=== PATIENT | female | born 1940 | race Caucasian/White ===

== ENCOUNTER 2020-08-26 13:14 | Inpatient (IN) | payer OTHER ==
[~2020-08-26] VITALS: Ht 154.9 cm; Wt 43.5 kg
[2020-08-26 14:21] LABS: Albumin 3.2 g/dL (3.4-5.0); Anion Gap 5 (5-15); Blood Urea Nitrogen 18 mg/dL (7-18); Calcium 9.3 mg/dL (8.5-10.1); Carbon Dioxide 29 mmol/L (21-32); Chloride 106 mmol/L (98-107); Glucose 124 mg/dL (74-106); Magnesium 2.2 mg/dL (1.6-2.6); Potassium 3.9 mmol/L (3.5-5.1); Sodium 140 mmol/L (136-145)
[2020-08-26 14:33] LABS: Basophils # (auto) 0.1 10 ^3/uL (0-0.2); Basophils % (auto) 0.9 % (0.0-2.0); Eosinophils # (auto) 0.5 10 ^3/uL (0-0.8); Eosinophils % (auto) 5.4 % (0.0-7.0); Hematocrit 36.3 % (36.0-46.0); Hemoglobin 12.1 g/dL (12.2-16.2); Lymphocytes % (auto) 22.5 % (10.0-50.0); Mean Corpuscular Hemoglobin 28.9 pg (28.0-32.0); Mean Corpuscular Hgb Conc. 33.2 g/dL (32.0-36.0); Mean Corpuscular Volume 86.9 fL (80.0-100.0); Monocytes # (auto) 1.3 10 ^3/uL (0-1.3); Monocytes % (auto) 14.7 % (0.0-12.0); Neutrophils # (auto) 4.9 10 ^3/uL (1.6-8.6); Neutrophils % (auto) 56.5 % (37.0-80.0); Nucleated Red Blood Cells % 0.1 %; Red Blood Cells 4.18 10^6/uL (4.0-5.20); Red Cell Distribution Width 15.7 % (11.8-14.3); White Blood Cell 8.7 10^3/uL (4.4-10.8)
[2020-08-26 14:34] LABS: Alanine Aminotransferase 21 U/L (13-56); Alkaline Phosphatase 94 U/L (45-117); Aspartate Aminotransferase 24 U/L (15-37); BUN/Creatinine Ratio 19.8; Bilirubin, Total 0.3 mg/dL (0.2-1.0); GFR African American 77 mL/min; GFR Non-African American 63 mL/min; Total Protein 7.7 g/dL (6.4-8.2)
[2020-08-26] MEDS ORDERED: IPRATROPIUM BROM 0.5 MG/2.5ML INH SOL NEB ONE (18:45)
[2020-08-26] MEDS ORDERED: methylPREDNISolone SOD SUCC 125 MG/2 ML VL IV ONE (18:45)
[2020-08-26] MEDS ORDERED: cefTRIAXone 1GM/50ML D5W 50 ML IV ONE (18:45)
[2020-08-26] MEDS ORDERED: ALBUTEROL SULF 2.5 MG/0.5ML(0.5%) NEB SOLN NEB PRN (21:00)
[2020-08-26] MEDS ORDERED: hydrALAZINE HCL 20 MG/ML VL IV PRN (21:00)
[2020-08-26] MEDS ORDERED: IPRATROPIUM BROM 0.5 MG/2.5ML INH SOL NEB PRN (21:00)
[2020-08-26] MEDS ORDERED: MORPHINE SULFATE INJECTION 2 MG/ML SYRG IV PRN (21:00)
[2020-08-26] MEDS ORDERED: HYDROcodone-ACET 5/325MG TAB PO PRN (21:00)
[2020-08-26] MEDS ORDERED: ONDANSETRON HCL 4 MG/2 ML VIAL IV PRN (21:00)
[2020-08-26] MEDS ORDERED: ACETAMINOPHEN 500 MG TAB PO PRN (21:00)
[2020-08-26 21:24] VITALS: BP 153/74
[2020-08-26] MEDS: BUDESONIDE (INHALATION) 0.5 MG/2 ML NEB NEB SCH (21:55)
[2020-08-26 22:00] VITALS: BP 172/70
[2020-08-26] MEDS ORDERED: RIVAROXABAN 10 MG TAB PO SCH (22:00)
[2020-08-26] MEDS ORDERED: ALBUTEROL SULF HFA 90MCG INH 200DOSE IN SCH (22:00)
[2020-08-26 22:10] LABS: Urine Bacteria FEW /hpf (None Seen); Urine Blood Negative /uL (Negative); Urine WBC 6 /hpf (0 - 5)
[2020-08-26 23:48] VITALS: BP 164/72
[2020-08-27] VITALS (8 sets, daily range): BP systolic 124–164; BP diastolic 59–72
[2020-08-27] MEDS ORDERED: PRAV20TA3 PO ×2 (01:57)
[2020-08-27] MEDS ORDERED: ASCO500T11 PO (01:57)
[2020-08-27] MEDS ORDERED: ZINC1TAB4 PO (01:57)
[2020-08-27] MEDS ORDERED: ALBUAER3 IN (01:57)
[2020-08-27] MEDS ORDERED: RIVA10TA PO (01:57)
[2020-08-27] MEDS ORDERED: MAGN1CAP PO (01:57)
[2020-08-27] MEDS ORDERED: CHOL100055 PO (01:57)
[2020-08-27] MEDS ORDERED: CALC667C PO (01:57)
[2020-08-27] MEDS ORDERED: LORA0.5T20 PO (01:57)
[2020-08-27 06:16] LABS: Basophils # (auto) 0 10 ^3/uL (0-0.2); Basophils % (auto) 0.8 % (0.0-2.0); Eosinophils # (auto) 0 10 ^3/uL (0-0.8); Eosinophils % (auto) 0.1 % (0.0-7.0); Hematocrit 34.8 % (36.0-46.0); Hemoglobin 11.7 g/dL (12.2-16.2); Lymphocytes # (auto) 0.7 10 ^3/uL (0.4-5.4); Lymphocytes % (auto) 12.9 % (10.0-50.0); Mean Corpuscular Hemoglobin 29.2 pg (28.0-32.0); Mean Corpuscular Hgb Conc. 33.6 g/dL (32.0-36.0); Mean Corpuscular Volume 87.1 fL (80.0-100.0); Monocytes # (auto) 0.1 10 ^3/uL (0-1.3); Monocytes % (auto) 1.8 % (0.0-12.0); Neutrophils # (auto) 4.6 10 ^3/uL (1.6-8.6); Neutrophils % (auto) 84.4 % (37.0-80.0); Red Cell Distribution Width 15.9 % (11.8-14.3); White Blood Cell 5.5 10^3/uL (4.4-10.8)
[2020-08-27] MEDS: ALBUTEROL SULF 2.5 MG/0.5ML(0.5%) NEB SOLN NEB SCH ×3 (06:25→20:14)
[2020-08-27] MEDS: BUDESONIDE (INHALATION) 0.5 MG/2 ML NEB NEB SCH ×2 (06:25→20:15)
[2020-08-27] MEDS: IPRATROPIUM BROM 0.5 MG/2.5ML INH SOL NEB SCH ×3 (06:25→20:14)
[2020-08-27 06:35] LABS: Calcium 9.3 mg/dL (8.5-10.1)
[2020-08-27] MEDS: amLODIPine BESYLATE 5 MG TAB PO SCH (09:47)
[2020-08-27] MEDS: FAMOTIDINE 20 MG TAB PO SCH (09:51)
[2020-08-27] MEDS: RIVAROXABAN 2.5 MG PO SCH ×2 (11:03→21:07)
[2020-08-27] MEDS: LORazepam 0.5 MG TAB PO PRN (21:21)
[2020-08-28] MEDS ORDERED: IOHEXOL 350 MG/ML 100ML IJ ONE (00:04)
[2020-08-28] MEDS: methylPREDNISolone SOD SUCC 40 MG/ML VL IV SCH ×3 (00:38→13:07)
[2020-08-28 05:17] VITALS: BP 162/80
[2020-08-28 05:55] LABS: Basophils # (auto) 0.1 10 ^3/uL (0-0.2); Basophils % (auto) 1.1 % (0.0-2.0); Eosinophils # (auto) 0 10 ^3/uL (0-0.8); Eosinophils % (auto) 0.4 % (0.0-7.0); Hematocrit 34.6 % (36.0-46.0); Hemoglobin 11.5 g/dL (12.2-16.2); Lymphocytes # (auto) 0.9 10 ^3/uL (0.4-5.4); Lymphocytes % (auto) 9.6 % (10.0-50.0); Mean Corpuscular Hgb Conc. 33.4 g/dL (32.0-36.0); Monocytes # (auto) 0.2 10 ^3/uL (0-1.3); Monocytes % (auto) 2.4 % (0.0-12.0); Neutrophils # (auto) 8.5 10 ^3/uL (1.6-8.6); Neutrophils % (auto) 86.5 % (37.0-80.0); Red Blood Cells 3.98 10^6/uL (4.0-5.20); Red Cell Distribution Width 16.1 % (11.8-14.3); White Blood Cell 9.9 10^3/uL (4.4-10.8)
[2020-08-28 06:13] VITALS: BP 147/69
[2020-08-28 06:20] LABS: Potassium 4.5 mmol/L (3.5-5.1)
[2020-08-28 06:26] LABS: BUN/Creatinine Ratio 31.6; Calcium 8.9 mg/dL (8.5-10.1)
[2020-08-28] MEDS: ALBUTEROL SULF 2.5 MG/0.5ML(0.5%) NEB SOLN NEB SCH ×3 (06:36→14:50)
[2020-08-28] MEDS: BUDESONIDE (INHALATION) 0.5 MG/2 ML NEB NEB SCH (06:36)
[2020-08-28] MEDS: IPRATROPIUM BROM 0.5 MG/2.5ML INH SOL NEB SCH ×3 (06:36→14:51)
[2020-08-28 08:25] VITALS: BP 161/69
[2020-08-28] MEDS ORDERED: cefTRIAXone 1GM/50ML D5W 50 ML IV SCH (09:00)
[2020-08-28] MEDS: FAMOTIDINE 20 MG TAB PO SCH (09:17)
[2020-08-28] MEDS: LORazepam 0.5 MG TAB PO PRN (09:18)
[2020-08-28] MEDS: RIVAROXABAN 2.5 MG PO SCH (09:18)
[2020-08-28] MEDS: amLODIPine BESYLATE 5 MG TAB PO SCH (09:19)
[2020-08-28] MEDS ORDERED: FAMO20TA10 PO (11:39)
[2020-08-28] MEDS ORDERED: PRED20TA2 PO (11:39)
[2020-08-28] MEDS ORDERED: DOXY-338 PO (11:39)
[2020-08-28 12:53] VITALS: BP 156/71
[2020-08-28 16:25] VITALS: BP 148/70
[2020-08-28 16:52] VITALS: BP 148/70
== END 2020-08-28 18:00 | disposition home health service (06) | DRG 189 ==
LOC: ER 13:14 → OVERFLOW 21:00 → WEST WING 23:28
PROVIDERS: ADMIT Nurse Practitioner Acute Care; ATTEND Hospitalist
DX: J96.20 Acute and chronic respiratory failure, unspecified whether with hypoxia or hypercapnia (principal); J18.9 Pneumonia, unspecified organism; J44.1 Chronic obstructive pulmonary disease with (acute) exacerbation; R64 Cachexia; Z68.1 Body mass index [BMI] 19.9 or less, adult; J44.0 Chronic obstructive pulmonary disease with (acute) lower respiratory infection; I10 Essential (primary) hypertension; Z20.822 Contact with and (suspected) exposure to COVID-19; F41.9 Anxiety disorder, unspecified; Z86.16 Personal history of COVID-19; Z86.73 Personal history of transient ischemic attack (TIA), and cerebral infarction without residual deficits; Z86.74 Personal history of sudden cardiac arrest
CPT/HCPCS: 36415; 36600; 71045; 71275; 80048; 80053; 81001; 82805; 83735; 83880; 84484; 85025; 87426; 92610; 93005; 94640; 96365; 96375; 97163; G0378; J0696

== ENCOUNTER 2021-01-18 11:45 | Inpatient (IN) | payer OTHER ==
[~2021-01-18] VITALS: Ht 157.5 cm; Wt 50.0 kg
[~2021-01-18 11:45] MED LIST: ALBUAER3 IN; CALC667C PO; CHOL100055 PO; DOXY-338 PO; FAMO20TA10 PO; LORA0.5T20 PO; MAGN1CAP PO; PRAV20TA3 PO; PRED20TA2 PO; RIVA10TA PO
[2021-01-18] MEDS ORDERED: ALBUTEROL SULF 2.5 MG/0.5ML(0.5%) NEB SOLN HHN ONE (12:00)
[2021-01-18] MEDS ORDERED: IPRATROPIUM BROM 0.5 MG/2.5ML INH SOL HHN ONE (12:00)
[2021-01-18] MEDS ORDERED: methylPREDNISolone SOD SUCC 125 MG/2 ML VL IV ONE (12:00)
[2021-01-18 12:17] LABS: Basophils # (auto) 0 10 ^3/uL (0-0.2); Basophils % (auto) 0.3 % (0.0-2.0); Eosinophils # (auto) 0 10 ^3/uL (0-0.8); Eosinophils % (auto) 0.3 % (0.0-7.0); Hematocrit 34.7 % (36.0-46.0); Hemoglobin 11.2 g/dL (12.2-16.2); Lymphocytes # (auto) 1.3 10 ^3/uL (0.4-5.4); Lymphocytes % (auto) 6.9 % (10.0-50.0); Mean Corpuscular Hemoglobin 29.5 pg (28.0-32.0); Mean Corpuscular Hgb Conc. 32.4 g/dL (32.0-36.0); Monocytes # (auto) 1.4 10 ^3/uL (0-1.3); Monocytes % (auto) 7.8 % (0.0-12.0); Neutrophils # (auto) 15.4 10 ^3/uL (1.6-8.6); Neutrophils % (auto) 84.7 % (37.0-80.0); Red Blood Cells 3.81 10^6/uL (4.0-5.20); Red Cell Distribution Width 14.7 % (11.8-14.3); White Blood Cell 18.2 10^3/uL (4.4-10.8)
[2021-01-18 12:25] LABS: Albumin 2.8 g/dL (3.4-5.0); Anion Gap 5 (5-15); Blood Urea Nitrogen 23 mg/dL (7-18); Calcium 9.7 mg/dL (8.5-10.1); Carbon Dioxide 27 mmol/L (21-32); Chloride 101 mmol/L (98-107); Glucose 128 mg/dL (74-106); Magnesium 2.4 mg/dL (1.6-2.6); Sodium 133 mmol/L (136-145)
[2021-01-18 12:33] LABS: Alanine Aminotransferase 22 U/L (13-56); Alkaline Phosphatase 94 U/L (45-117); Aspartate Aminotransferase 18 U/L (15-37); BUN/Creatinine Ratio 19.3; Bilirubin, Total 0.7 mg/dL (0.2-1.0); GFR African American 56 mL/min; GFR Non-African American 46 mL/min; Total Protein 7.4 g/dL (6.4-8.2)
[2021-01-18] MEDS ORDERED: AZITHROMYCIN 500MG/ 250ML 250 ML IV ONE (13:15)
[2021-01-18 14:00] VITALS: BP 133/50
[2021-01-18] MEDS ORDERED: ONDANSETRON HCL 4 MG/2 ML VIAL IV PRN (14:00)
[2021-01-18] MEDS ORDERED: MORPHINE SULFATE INJECTION 2 MG/ML SYRG IV PRN ×2 (14:00)
[2021-01-18] MEDS ORDERED: DOCUSATE CALCIUM 240 MG CAP PO PRN (14:00)
[2021-01-18] MEDS ORDERED: SODIUM CHLORIDE 0.9% 500 ML IV ONE (14:00)
[2021-01-18] MEDS ORDERED: ACETAMINOPHEN 500 MG TAB PO PRN (14:00)
[2021-01-18] MEDS ORDERED: NITROGLYCERIN 0.4 MG SL TAB SL PRN (14:00)
[2021-01-18] MEDS ORDERED: LORazepam 0.5 MG TAB PO PRN (14:00)
[2021-01-18] MEDS ORDERED: IPRATROPIUM BROM 0.5 MG/2.5ML INH SOL NEB PRN (14:00)
[2021-01-18] MEDS ORDERED: VANCOMYCIN PER PHARMACY 0 MG IV SCH (14:00)
[2021-01-18] MEDS: SODIUM CHLORIDE 0.9% 1,000 ML IV SCH (14:39)
[2021-01-18] MEDS ORDERED: VANCOMYCIN 750mg/250ml 250 ML IV SCH (16:00)
[2021-01-18] MEDS ORDERED: DILT60TA PO (18:47)
[2021-01-18] MEDS: BUDESONIDE (INHALATION) 0.5 MG/2 ML NEB NEB SCH (21:53)
[2021-01-18] MEDS: ALBUTEROL SULF 2.5 MG/0.5ML(0.5%) NEB SOLN NEB PRN (21:53)
[2021-01-18 22:00] VITALS: BP 135/65
[2021-01-19 05:00] VITALS: BP 136/74
[2021-01-19 05:11] LABS: Basophils # (auto) 0 10 ^3/uL (0-0.2); Basophils % (auto) 0.1 % (0.0-2.0); Eosinophils # (auto) 0 10 ^3/uL (0-0.8); Hematocrit 31.9 % (36.0-46.0); Hemoglobin 10.7 g/dL (12.2-16.2); Lymphocytes # (auto) 0.6 10 ^3/uL (0.4-5.4); Lymphocytes % (auto) 5.4 % (10.0-50.0); Mean Corpuscular Hemoglobin 30.1 pg (28.0-32.0); Mean Corpuscular Hgb Conc. 33.3 g/dL (32.0-36.0); Mean Corpuscular Volume 90.2 fL (80.0-100.0); Monocytes # (auto) 0.5 10 ^3/uL (0-1.3); Monocytes % (auto) 4.4 % (0.0-12.0); Neutrophils # (auto) 9.6 10 ^3/uL (1.6-8.6); Neutrophils % (auto) 90.1 % (37.0-80.0); Red Blood Cells 3.54 10^6/uL (4.0-5.20); Red Cell Distribution Width 14.2 % (11.8-14.3); White Blood Cell 10.6 10^3/uL (4.4-10.8)
[2021-01-19 05:29] LABS: INR 1.04 (0.9-1.15)
[2021-01-19 05:41] LABS: Albumin 2.3 g/dL (3.4-5.0); BUN/Creatinine Ratio 25.6; Calcium 8.9 mg/dL (8.5-10.1); Potassium 3.8 mmol/L (3.5-5.1)
[2021-01-19 05:44] LABS: Bilirubin, Total 0.4 mg/dL (0.2-1.0); Total Protein 6.7 g/dL (6.4-8.2)
[2021-01-19] MEDS: BUDESONIDE (INHALATION) 0.5 MG/2 ML NEB NEB SCH ×2 (07:34→19:37)
[2021-01-19] MEDS: ALBUTEROL SULF 2.5 MG/0.5ML(0.5%) NEB SOLN NEB PRN (07:34)
[2021-01-19 09:00] VITALS: BP 130/57
[2021-01-19] MEDS: SODIUM CHLORIDE 0.9% 1,000 ML IV SCH (09:53)
[2021-01-19] MEDS: dilTIAZem 120MG ER CAP PO SCH (09:54)
[2021-01-19] MEDS: PANTOPRAZOLE 40 MG TAB PO SCH (09:54)
[2021-01-19] MEDS ORDERED: ENOXAPARIN SOD 30 MG/0.3 ML SYRINGE SC SCH (10:00)
[2021-01-19 12:39] LABS: Urine Bacteria NONE SEEN /hpf (None Seen); Urine Blood Negative /uL (Negative); Urine Specific Gravity 1.021 (1.001-1.035); Urine WBC 1 /hpf (0 - 5)
[2021-01-19 13:00] VITALS: BP 124/57
[2021-01-19] MEDS ORDERED: cefTRIAXone 1GM/50ML D5W 50 ML IV ONE (13:30)
[2021-01-19] MEDS: methylPREDNISolone SOD SUCC 40 MG/ML VL IV SCH (17:55)
[2021-01-19] MEDS: IPRATROPIUM BROM 0.5 MG/2.5ML INH SOL NEB SCH ×2 (19:30→19:38)
[2021-01-19] MEDS: ALBUTEROL SULF 2.5 MG/0.5ML(0.5%) NEB SOLN NEB SCH ×2 (19:38→19:39)
[2021-01-19 22:00] VITALS: BP 121/62
[2021-01-20] MEDS: ALBUTEROL SULF 2.5 MG/0.5ML(0.5%) NEB SOLN NEB SCH ×4 (00:43→19:05)
[2021-01-20] MEDS: IPRATROPIUM BROM 0.5 MG/2.5ML INH SOL NEB SCH ×4 (00:43→19:05)
[2021-01-20] MEDS: methylPREDNISolone SOD SUCC 40 MG/ML VL IV SCH ×4 (00:46→17:35)
[2021-01-20] MEDS: SODIUM CHLORIDE 0.9% 1,000 ML IV SCH (01:38)
[2021-01-20 04:57] LABS: Basophils # (auto) 0 10 ^3/uL (0-0.2); Basophils % (auto) 0.1 % (0.0-2.0); Eosinophils # (auto) 0 10 ^3/uL (0-0.8); Hematocrit 30.2 % (36.0-46.0); Lymphocytes # (auto) 0.6 10 ^3/uL (0.4-5.4); Lymphocytes % (auto) 4.8 % (10.0-50.0); Mean Corpuscular Hgb Conc. 33.2 g/dL (32.0-36.0); Mean Corpuscular Volume 90.3 fL (80.0-100.0); Monocytes # (auto) 0.4 10 ^3/uL (0-1.3); Neutrophils % (auto) 92.1 % (37.0-80.0); Red Blood Cells 3.34 10^6/uL (4.0-5.20); Red Cell Distribution Width 14.4 % (11.8-14.3)
[2021-01-20 05:21] VITALS: BP 120/60
[2021-01-20] MEDS: BUDESONIDE (INHALATION) 0.5 MG/2 ML NEB NEB SCH ×2 (06:27→19:05)
[2021-01-20] MEDS: cefTRIAXone 1GM/50ML D5W 50 ML IV SCH (08:42)
[2021-01-20 09:00] VITALS: BP 153/98
[2021-01-20] MEDS: dilTIAZem 120MG ER CAP PO SCH (09:31)
[2021-01-20] MEDS: RIVAROXABAN 10 MG TAB PO SCH ×2 (09:32→22:04)
[2021-01-20] MEDS: PANTOPRAZOLE 40 MG TAB PO SCH (09:32)
[2021-01-20 13:00] VITALS: BP 139/57
[2021-01-20] MEDS ORDERED: IOHEXOL 350 MG/ML 100ML IJ ONE (15:55)
[2021-01-20 17:00] VITALS: BP 152/70
[2021-01-20 20:00] VITALS: BP 150/72
[2021-01-20 22:00] VITALS: BP 157/72
[2021-01-20] MEDS: hydrALAZINE HCL 20 MG/ML VL IV PRN (22:05)
[2021-01-21] VITALS (7 sets, daily range): BP systolic 116–157; BP diastolic 57–94
[2021-01-21] MEDS: methylPREDNISolone SOD SUCC 40 MG/ML VL IV SCH ×3 (00:11→11:53)
[2021-01-21] MEDS: ALBUTEROL SULF 2.5 MG/0.5ML(0.5%) NEB SOLN NEB SCH ×4 (00:14→19:03)
[2021-01-21] MEDS: IPRATROPIUM BROM 0.5 MG/2.5ML INH SOL NEB SCH ×4 (00:14→19:03)
[2021-01-21] MEDS: SODIUM CHLORIDE 0.9% 1,000 ML IV SCH ×2 (03:20→22:00)
[2021-01-21 06:26] LABS: Basophils # (auto) 0 10 ^3/uL (0-0.2); Basophils % (auto) 0.1 % (0.0-2.0); Eosinophils # (auto) 0 10 ^3/uL (0-0.8); Hematocrit 31.4 % (36.0-46.0); Hemoglobin 10.5 g/dL (12.2-16.2); Lymphocytes # (auto) 0.6 10 ^3/uL (0.4-5.4); Lymphocytes % (auto) 4.2 % (10.0-50.0); Mean Corpuscular Hemoglobin 29.9 pg (28.0-32.0); Mean Corpuscular Hgb Conc. 33.3 g/dL (32.0-36.0); Mean Corpuscular Volume 89.8 fL (80.0-100.0); Monocytes # (auto) 0.6 10 ^3/uL (0-1.3); Monocytes % (auto) 4.6 % (0.0-12.0); Neutrophils # (auto) 12.4 10 ^3/uL (1.6-8.6); Neutrophils % (auto) 91.1 % (37.0-80.0); Red Cell Distribution Width 14.4 % (11.8-14.3); White Blood Cell 13.6 10^3/uL (4.4-10.8)
[2021-01-21] MEDS: BUDESONIDE (INHALATION) 0.5 MG/2 ML NEB NEB SCH ×2 (06:34→19:03)
[2021-01-21 06:43] LABS: Calcium 8.8 mg/dL (8.5-10.1); Potassium 4.1 mmol/L (3.5-5.1)
[2021-01-21 06:45] LABS: BUN/Creatinine Ratio 34.1
[2021-01-21] MEDS: cefTRIAXone 1GM/50ML D5W 50 ML IV SCH (08:34)
[2021-01-21] MEDS: dilTIAZem 120MG ER CAP PO SCH (09:32)
[2021-01-21] MEDS: PANTOPRAZOLE 40 MG TAB PO SCH (09:32)
[2021-01-21] MEDS: RIVAROXABAN 10 MG TAB PO SCH (09:32)
[2021-01-21] MEDS ORDERED: AMOX500T86 PO (09:46)
[2021-01-21] MEDS ORDERED: PRED20TA2 PO (09:46)
[2021-01-21] MEDS ORDERED: IPRA0.00 IN (09:46)
[2021-01-21] MEDS ORDERED: MEROPENEM 1GM IVPB 100 ML IV SCH (14:00)
[2021-01-21] MEDS ORDERED: RIVAROXABAN 10 MG TAB PO SCH (14:45)
[2021-01-21 16:34] LABS: INR 1.3 (0.9-1.15); Partial Thromboplastin Time 32.9 sec (23.6-33.0)
[2021-01-21] MEDS: ERTAPENEM SOD INJ 1 GM in SODIUM CHL 0.9% 50 ML IV SCH (16:51)
[2021-01-22] MEDS: ALBUTEROL SULF 2.5 MG/0.5ML(0.5%) NEB SOLN NEB SCH ×4 (00:28→20:53)
[2021-01-22] MEDS: IPRATROPIUM BROM 0.5 MG/2.5ML INH SOL NEB SCH ×4 (00:28→20:53)
[2021-01-22 05:00] VITALS: BP 156/73
[2021-01-22] MEDS: hydrALAZINE HCL 20 MG/ML VL IV PRN (05:32)
[2021-01-22] MEDS: BUDESONIDE (INHALATION) 0.5 MG/2 ML NEB NEB SCH ×2 (07:15→20:53)
[2021-01-22 09:24] VITALS: BP 137/69
[2021-01-22] MEDS: dilTIAZem 120MG ER CAP PO SCH (09:54)
[2021-01-22] MEDS: PANTOPRAZOLE 40 MG TAB PO SCH (09:55)
[2021-01-22] MEDS: ERTAPENEM SOD INJ 1 GM in SODIUM CHL 0.9% 50 ML IV SCH (09:55)
[2021-01-22] MEDS: predniSONE 20 MG TAB PO SCH (09:55)
[2021-01-22 12:42] VITALS: BP 138/65
[2021-01-22 16:46] VITALS: BP 143/59
[2021-01-22] MEDS: SODIUM CHLORIDE 0.9% 1,000 ML IV SCH (18:00)
[2021-01-22 22:20] VITALS: BP 134/50
[2021-01-23 05:00] VITALS: BP 148/68
[2021-01-23] MEDS: IPRATROPIUM BROM 0.5 MG/2.5ML INH SOL NEB SCH ×2 (07:35→12:05)
[2021-01-23] MEDS: ALBUTEROL SULF 2.5 MG/0.5ML(0.5%) NEB SOLN NEB SCH ×2 (07:35→12:05)
[2021-01-23] MEDS: BUDESONIDE (INHALATION) 0.5 MG/2 ML NEB NEB SCH (07:35)
[2021-01-23 09:37] VITALS: BP 154/80
[2021-01-23] MEDS: predniSONE 20 MG TAB PO SCH (09:53)
[2021-01-23] MEDS: PANTOPRAZOLE 40 MG TAB PO SCH (09:53)
[2021-01-23] MEDS: dilTIAZem 120MG ER CAP PO SCH (09:53)
[2021-01-23] MEDS: ERTAPENEM SOD INJ 1 GM in SODIUM CHL 0.9% 50 ML IV SCH (09:54)
[2021-01-23 12:42] VITALS: BP 149/81
[2021-01-23] MEDS: SODIUM CHLORIDE 0.9% 1,000 ML IV SCH (14:00)
[2021-01-23 15:10] VITALS: BP 148/80
== END 2021-01-23 17:30 | disposition home health service (06) | DRG 193 ==
LOC: ER 11:45 → TELE 14:00 → TELE-WESTW 17:14
PROVIDERS: ADMIT Family Medicine; ATTEND Hospitalist
DX: J18.9 Pneumonia, unspecified organism (principal); J96.21 Acute and chronic respiratory failure with hypoxia; E87.1 Hypo-osmolality and hyponatremia; R65.10 Systemic inflammatory response syndrome (SIRS) of non-infectious origin without acute organ dysfunction; E44.1 Mild protein-calorie malnutrition; Z20.822 Contact with and (suspected) exposure to COVID-19; J43.9 Emphysema, unspecified; R73.9 Hyperglycemia, unspecified; E86.0 Dehydration; N18.9 Chronic kidney disease, unspecified; E78.5 Hyperlipidemia, unspecified; I12.9 Hypertensive chronic kidney disease with stage 1 through stage 4 chronic kidney disease, or unspecified chronic kidney disease; B96.20 Unspecified Escherichia coli [E. coli] as the cause of diseases classified elsewhere; K21.9 Gastro-esophageal reflux disease without esophagitis; R54 Age-related physical debility; Z88.6 Allergy status to analgesic agent; Z90.49 Acquired absence of other specified parts of digestive tract; Z79.01 Long term (current) use of anticoagulants; Z79.899 Other long term (current) drug therapy; Z82.49 Family history of ischemic heart disease and other diseases of the circulatory system; Z86.16 Personal history of COVID-19; Z86.73 Personal history of transient ischemic attack (TIA), and cerebral infarction without residual deficits; Z87.891 Personal history of nicotine dependence
CPT/HCPCS: 36415; 71045; 71275; 80048; 80053; 81001; 82565; 82728; 83036; 83605; 83735; 83880; 84439; 84443; 84484; 85025; 85379; 85610; 85730; 86141; 87040; 87070; 87077; 87186; 87205; 87426; 93005; 93306; 94640; 96365; 96367; 96375; 99291; G0378; J0696; J1335; J2185

== ENCOUNTER 2021-08-14 12:41 | Observation (INO) | payer OTHER ==
[~2021-08-14] VITALS: Ht 160 cm; Wt 49.0 kg
[~2021-08-14 12:41] MED LIST changes: +AMOX500T86 PO; +DILT60TA PO; -DOXY-338 PO; +IPRA0.00 IN
[2021-08-14 13:36] LABS: Basophils # (auto) 0.1 10 ^3/uL (0-0.2); Basophils % (auto) 0.5 % (0.0-2.0); Eosinophils # (auto) 0.1 10 ^3/uL (0-0.8); Eosinophils % (auto) 0.4 % (0.0-7.0); Hematocrit 35.7 % (36.0-46.0); Hemoglobin 11.9 g/dL (12.2-16.2); Lymphocytes # (auto) 1.8 10 ^3/uL (0.4-5.4); Lymphocytes % (auto) 11.8 % (10.0-50.0); Mean Corpuscular Hemoglobin 30.5 pg (28.0-32.0); Mean Corpuscular Hgb Conc. 33.3 g/dL (32.0-36.0); Mean Corpuscular Volume 91.6 fL (80.0-100.0); Monocytes # (auto) 1.3 10 ^3/uL (0-1.3); Monocytes % (auto) 8.6 % (0.0-12.0); Neutrophils # (auto) 11.8 10 ^3/uL (1.6-8.6); Neutrophils % (auto) 78.7 % (37.0-80.0); Red Blood Cells 3.89 10^6/uL (4.0-5.20); Red Cell Distribution Width 14.7 % (11.8-14.3)
[2021-08-14 13:54] LABS: Albumin 3.2 g/dL (3.4-5.0); BUN/Creatinine Ratio 17.6; Calcium 8.9 mg/dL (8.5-10.1); Potassium 3.6 mmol/L (3.5-5.1)
[2021-08-14 13:57] LABS: Bilirubin, Total 0.6 mg/dL (0.2-1.0); Total Protein 7.7 g/dL (6.4-8.2)
[2021-08-14] MEDS ORDERED: ALBUTEROL SULF 2.5 MG/0.5ML(0.5%) NEB SOLN NEB STA (14:34)
[2021-08-14] MEDS ORDERED: methylPREDNISolone SOD SUCC 125 MG/2 ML VL IV ONE (14:45)
[2021-08-14] MEDS ORDERED: IPRATROPIUM BROM 0.5 MG/2.5ML INH SOL NEB ONE (14:45)
[2021-08-14] MEDS ORDERED: LORazepam 2MG/ML-1ML VIAL IV ONE (14:45)
[2021-08-14] MEDS ORDERED: cefTRIAXone 1GM/50ML D5W 50 ML IV ONE (15:45)
[2021-08-14] MEDS ORDERED: AZITHROMYCIN 500MG/ 250ML 250 ML IV ONE (15:45)
[2021-08-14] MEDS ORDERED: MORPHINE SULFATE INJ 2 MG/ml SYRG IV PRN (17:15)
[2021-08-14] MEDS ORDERED: NITROGLYCERIN 0.4 MG SL TAB SL PRN (17:15)
[2021-08-14] MEDS ORDERED: ALBUTEROL SULF HFA 90MCG INH 200DOSE IN PRN (17:30)
[2021-08-14] MEDS ORDERED: IOHEXOL 350 MG/ML 100ML IJ ONE (18:01)
[2021-08-14] MEDS: ALBUTEROL SULF 2.5 MG/0.5ML(0.5%) NEB SOLN NEB SCH (19:09)
[2021-08-14] MEDS: IPRATROPIUM BROM 0.5 MG/2.5ML INH SOL NEB SCH (19:09)
[2021-08-14 22:00] VITALS: BP 103/54
[2021-08-14] MEDS ORDERED: RIVAROXABAN 10 MG TAB PO SCH (22:00)
[2021-08-14] MEDS: methylPREDNISolone SOD SUCC 125 MG/2 ML VL IV SCH (22:09)
[2021-08-14] MEDS: CEFEPIME 2 GM in SODIUM CHL 0.9% 50 ML IV SCH (22:09)
[2021-08-14 22:11] VITALS: BP 113/42
[2021-08-15] MEDS: IPRATROPIUM BROM 0.5 MG/2.5ML INH SOL NEB SCH ×3 (00:03→12:08)
[2021-08-15] MEDS: ALBUTEROL SULF 2.5 MG/0.5ML(0.5%) NEB SOLN NEB SCH ×3 (00:03→12:08)
[2021-08-15 01:03] VITALS: BP 113/42
[2021-08-15 05:00] VITALS: BP 104/48
[2021-08-15] MEDS: methylPREDNISolone SOD SUCC 125 MG/2 ML VL IV SCH ×2 (06:19→14:00)
[2021-08-15 09:00] VITALS: BP 134/57
[2021-08-15] MEDS: CEFEPIME 2 GM in SODIUM CHL 0.9% 50 ML IV SCH (09:53)
[2021-08-15] MEDS ORDERED: FAMOTIDINE 20 MG TAB PO SCH (10:00)
[2021-08-15] MEDS ORDERED: AZITHROMYCIN 500MG/ 250ML 250 ML IV SCH (10:00)
[2021-08-15] MEDS ORDERED: CALCIUM ACETATE 667 MG CAP PO SCH (10:00)
[2021-08-15] MEDS ORDERED: PANTOPRAZOLE 40 MG TAB PO SCH (10:00)
[2021-08-15] MEDS ORDERED: CHOLECALCIFEROL (VITD3) 1,000UNIT=25mCg TAB PO SCH (10:00)
[2021-08-15] MEDS ORDERED: methylPREDNISolone SOD SUCC 125 MG/2 ML VL IV SCH (10:00)
[2021-08-15] MEDS ORDERED: dilTIAZem 120MG ER CAP PO SCH (10:00)
[2021-08-15] MEDS ORDERED: LORazepam 0.5 MG TAB PO SCH (10:00)
[2021-08-15] MEDS ORDERED: ENOXAPARIN SOD 40 MG/0.4 ML SYRINGE SC SCH (10:00)
[2021-08-15] MEDS ORDERED: ASPirin 81 mg TAB PO SCH (10:00)
[2021-08-15] MEDS ORDERED: ALBUAER3 IN (10:28)
[2021-08-15] MEDS ORDERED: LEVO750T8 PO (10:28)
[2021-08-15] MEDS ORDERED: PRED20TA2 PO (10:28)
[2021-08-15] MEDS ORDERED: FAMO20TA10 PO (10:28)
[2021-08-15] MEDS ORDERED: IPRA0.00 IN (10:28)
[2021-08-15] MEDS ORDERED: GUAI400T44 PO (10:28)
[2021-08-15 11:05] LABS: Basophils # (auto) 0 10 ^3/uL (0-0.2); Basophils % (auto) 0.1 % (0.0-2.0); Eosinophils # (auto) 0 10 ^3/uL (0-0.8); Hematocrit 32.3 % (36.0-46.0); Hemoglobin 10.9 g/dL (12.2-16.2); Lymphocytes # (auto) 0.8 10 ^3/uL (0.4-5.4); Lymphocytes % (auto) 4.1 % (10.0-50.0); Mean Corpuscular Hemoglobin 30.9 pg (28.0-32.0); Mean Corpuscular Hgb Conc. 33.9 g/dL (32.0-36.0); Mean Corpuscular Volume 91.1 fL (80.0-100.0); Monocytes # (auto) 0.8 10 ^3/uL (0-1.3); Neutrophils # (auto) 19.1 10 ^3/uL (1.6-8.6); Neutrophils % (auto) 91.8 % (37.0-80.0); Red Blood Cells 3.54 10^6/uL (4.0-5.20); Red Cell Distribution Width 14.7 % (11.8-14.3); White Blood Cell 20.8 10^3/uL (4.4-10.8)
[2021-08-15 11:24] LABS: Albumin 2.8 g/dL (3.4-5.0); BUN/Creatinine Ratio 23.1; Calcium 9.4 mg/dL (8.5-10.1); Potassium 3.7 mmol/L (3.5-5.1)
[2021-08-15 11:38] LABS: Bilirubin, Total 0.4 mg/dL (0.2-1.0); Total Protein 7.1 g/dL (6.4-8.2)
[2021-08-15 13:00] VITALS: BP 126/53
[2021-08-15 15:50] VITALS: BP 126/53
[2021-08-15 16:03] VITALS: BP 134/57
[2021-08-15] MEDS ORDERED: PRAVASTATIN SODIUM 20 MG TAB PO SCH (22:00)
== END 2021-08-15 16:35 | disposition home health service (06) ==
LOC: ER 12:41 → TELE 17:13 → TELE-CENTR 21:45
PROVIDERS: ADMIT Hospitalist; ATTEND Hospitalist
DX: J96.21 Acute and chronic respiratory failure with hypoxia (principal); Z20.822 Contact with and (suspected) exposure to COVID-19; J43.9 Emphysema, unspecified; Z87.891 Personal history of nicotine dependence; Z88.0 Allergy status to penicillin; Z79.899 Other long term (current) drug therapy; Z86.73 Personal history of transient ischemic attack (TIA), and cerebral infarction without residual deficits
CPT/HCPCS: 36415; 71045; 71275; 80053; 83880; 84484; 85025; 85379; 87040; 87070; 87077; 87186; 87205; 87426; 93005; 94640; 96365; 96366; 96367; 96368; 96375; 96376; 99285; G0378; J0456; J0692; J0696; J2060; J2930; J7644; Q9967

== ENCOUNTER 2021-09-24 13:52 | Inpatient (IN) | payer OTHER ==
[~2021-09-24] VITALS: Ht 152.4 cm; Wt 53.0 kg
[~2021-09-24 13:52] MED LIST changes: -AMOX500T86 PO; +GUAI400T44 PO; +LEVO750T8 PO; -RIVA10TA PO
[2021-09-24] MEDS ORDERED: IPRATROPIUM BROM 0.5 MG/2.5ML INH SOL HHN ONE (14:00)
[2021-09-24] MEDS ORDERED: methylPREDNISolone SOD SUCC 125 MG/2 ML VL IV ONE (14:00)
[2021-09-24] MEDS ORDERED: ALBUTEROL SULF 2.5 MG/0.5ML(0.5%) NEB SOLN HHN ONE (14:00)
[2021-09-24 14:45] LABS: Basophils # (auto) 0.1 10 ^3/uL (0-0.2); Eosinophils # (auto) 0.2 10 ^3/uL (0-0.8); Monocytes # (auto) 0.7 10 ^3/uL (0-1.3); Nucleated Red Blood Cells % 0.1 %
[2021-09-24 14:47] LABS: Basophils % (auto) 1.1 % (0.0-2.0); Eosinophils % (auto) 2.6 % (0.0-7.0); Hematocrit 35.6 % (36.0-46.0); Hemoglobin 12.1 g/dL (12.2-16.2); Lymphocytes # (auto) 1.9 10 ^3/uL (0.4-5.4); Lymphocytes % (auto) 25.2 % (10.0-50.0); Mean Corpuscular Hemoglobin 30.7 pg (28.0-32.0); Mean Corpuscular Hgb Conc. 33.9 g/dL (32.0-36.0); Mean Corpuscular Volume 90.8 fL (80.0-100.0); Monocytes % (auto) 9.5 % (0.0-12.0); Neutrophils # (auto) 4.7 10 ^3/uL (1.6-8.6); Neutrophils % (auto) 61.6 % (37.0-80.0); Red Blood Cells 3.93 10^6/uL (4.0-5.20); Red Cell Distribution Width 14.1 % (11.8-14.3); White Blood Cell 7.7 10^3/uL (4.4-10.8)
[2021-09-24 15:11] LABS: Albumin 3.4 g/dL (3.4-5.0); Calcium 9.5 mg/dL (8.5-10.1); Magnesium 2.7 mg/dL (1.6-2.6)
[2021-09-24 15:14] LABS: BUN/Creatinine Ratio 19.5; Bilirubin, Total 0.2 mg/dL (0.2-1.0); CRP High Sensitivity 0.27 mg/dL (< 0.3); Total Protein 7.8 g/dL (6.4-8.2)
[2021-09-24] MEDS ORDERED: ASCORBIC ACID 500 MG TAB PO ONE (17:45)
[2021-09-24] MEDS ORDERED: NITROGLYCERIN 0.4 MG SL TAB SL PRN (18:00)
[2021-09-24] MEDS ORDERED: MORPHINE SULFATE INJ 2 MG/ml SYRG IV PRN (18:00)
[2021-09-24] MEDS ORDERED: REMDESIVIR PER PHARMACY 0 ML IV SCH (18:00)
[2021-09-24] MEDS ORDERED: REMDESIVIR 200 MG in NS 210ml LOADING DOSE ADULT IV ONE (21:00)
[2021-09-24 21:19] VITALS: BP 166/79
[2021-09-25] MEDS: ASCORBIC ACID 500 MG TAB PO SCH ×3 (00:27→21:32)
[2021-09-25] MEDS ORDERED: HYDR-3682 PO (02:56)
[2021-09-25 05:00] VITALS: BP 116/51
[2021-09-25 06:20] LABS: Alanine Aminotransferase 15 U/L (13-56); Albumin 2.9 g/dL (3.4-5.0); Anion Gap 7 (5-15); Aspartate Aminotransferase 15 U/L (15-37); BUN/Creatinine Ratio 20.2; Blood Urea Nitrogen 17 mg/dL (7-18); Calcium 8.9 mg/dL (8.5-10.1); Carbon Dioxide 24 mmol/L (21-32); Chloride 107 mmol/L (98-107); GFR African American 84 mL/min; GFR Non-African American 69 mL/min; Glucose 130 mg/dL (74-106); Sodium 138 mmol/L (136-145)
[2021-09-25 06:22] LABS: Alkaline Phosphatase 65 U/L (45-117); Bilirubin, Total 0.1 mg/dL (0.2-1.0); Total Protein 6.5 g/dL (6.4-8.2)
[2021-09-25 08:00] VITALS: BP 150/61
[2021-09-25 09:17] LABS: Basophils # (auto) 0 10 ^3/uL (0-0.2); Basophils % (auto) 0.2 % (0.0-2.0); Eosinophils # (auto) 0 10 ^3/uL (0-0.8); Hematocrit 35.8 % (36.0-46.0); Hemoglobin 11.9 g/dL (12.2-16.2); Lymphocytes # (auto) 1.2 10 ^3/uL (0.4-5.4); Mean Corpuscular Hemoglobin 30.7 pg (28.0-32.0); Mean Corpuscular Hgb Conc. 33.2 g/dL (32.0-36.0); Mean Corpuscular Volume 92.4 fL (80.0-100.0); Monocytes # (auto) 0.8 10 ^3/uL (0-1.3); Monocytes % (auto) 7.6 % (0.0-12.0); Neutrophils # (auto) 8.6 10 ^3/uL (1.6-8.6); Neutrophils % (auto) 81.2 % (37.0-80.0); Red Blood Cells 3.87 10^6/uL (4.0-5.20); Red Cell Distribution Width 14.3 % (11.8-14.3); White Blood Cell 10.5 10^3/uL (4.4-10.8)
[2021-09-25] MEDS: ENOXAPARIN SOD 40 MG/0.4 ML SYRINGE SC SCH (10:20)
[2021-09-25] MEDS: levoFLOXacin 500MG 100 ML IV SCH (10:20)
[2021-09-25] MEDS: ALBUTEROL SULF 2.5 MG/0.5ML(0.5%) NEB SOLN NEB PRN (10:51)
[2021-09-25 12:00] VITALS: BP 146/63
[2021-09-25 15:59] VITALS: BP 144/73
[2021-09-25] MEDS: REMDESIVIR 100mg 100 MG in SODIUM CHL 0.9% 230 ML IV SCH (17:50)
[2021-09-25] MEDS ORDERED: hydrOXYzine 25 MG TAB or CAP PO PRN (19:45)
[2021-09-25] MEDS: DexAMETHasone INJECTION 6 MG in D5W 5% 50 ML IV SCH (20:05)
[2021-09-25] MEDS: hydrOXYzine 25 MG TAB or CAP PO PRN (20:06)
[2021-09-25 22:00] VITALS: BP 167/70
[2021-09-26] MEDS: ALBUTEROL SULF 2.5 MG/0.5ML(0.5%) NEB SOLN NEB PRN ×4 (04:22→23:52)
[2021-09-26 05:00] VITALS: BP 141/68
[2021-09-26 07:33] LABS: Potassium 4.1 mmol/L (3.5-5.1)
[2021-09-26 07:43] LABS: BUN/Creatinine Ratio 22.9; Bilirubin, Total 0.5 mg/dL (0.2-1.0); Calcium 9.2 mg/dL (8.5-10.1); Total Protein 6.7 g/dL (6.4-8.2)
[2021-09-26 08:00] VITALS: BP 134/67
[2021-09-26] MEDS ORDERED: ALPRAZolam 0.25 MG TAB PO PRN (10:00)
[2021-09-26] MEDS: ENOXAPARIN SOD 40 MG/0.4 ML SYRINGE SC SCH (10:07)
[2021-09-26] MEDS: levoFLOXacin 500MG 100 ML IV SCH (10:07)
[2021-09-26] MEDS: ASCORBIC ACID 500 MG TAB PO SCH ×2 (10:08→21:35)
[2021-09-26 12:00] VITALS: BP 123/64
[2021-09-26] MEDS: DexAMETHasone INJECTION 6 MG in D5W 5% 50 ML IV SCH (14:57)
[2021-09-26] MEDS: REMDESIVIR 100mg 100 MG in SODIUM CHL 0.9% 230 ML IV SCH (15:44)
[2021-09-26 16:00] VITALS: BP 148/73
[2021-09-26] MEDS: hydrOXYzine 25 MG TAB or CAP PO PRN (21:35)
[2021-09-26 22:00] VITALS: BP 115/52
[2021-09-27 05:00] VITALS: BP 133/60
[2021-09-27] MEDS ORDERED: AZIT500T66 PO (06:39)
[2021-09-27] MEDS ORDERED: DEXA6TAB PO (06:39)
[2021-09-27 06:59] LABS: Calcium 8.9 mg/dL (8.5-10.1); Potassium 3.9 mmol/L (3.5-5.1)
[2021-09-27 07:02] LABS: Albumin 2.8 g/dL (3.4-5.0); BUN/Creatinine Ratio 26.2
[2021-09-27 07:05] LABS: Bilirubin, Total 0.3 mg/dL (0.2-1.0); Total Protein 6.2 g/dL (6.4-8.2)
[2021-09-27 09:00] VITALS: BP 144/62
[2021-09-27] MEDS: ENOXAPARIN SOD 40 MG/0.4 ML SYRINGE SC SCH (10:22)
[2021-09-27] MEDS: ASCORBIC ACID 500 MG TAB PO SCH (10:22)
[2021-09-27] MEDS: levoFLOXacin 500MG 100 ML IV SCH (10:22)
[2021-09-27] MEDS: DexAMETHasone INJECTION 6 MG in D5W 5% 50 ML IV SCH (11:30)
[2021-09-27] MEDS: ALBUTEROL SULF 2.5 MG/0.5ML(0.5%) NEB SOLN NEB PRN (12:26)
[2021-09-27 12:49] VITALS: BP 157/70
[2021-09-27 13:00] VITALS: BP_SYST 142; BP_SYST 192; BP_DIAS 60; BP_DIAS 86
== END 2021-09-27 14:18 | disposition home or self-care (01) | DRG 177 ==
LOC: ER 13:52 → UNDOADMOB 17:49 → OVERFLOW 17:49 → EAST 23:50 → OVERFLOW 23:50 → OBSVTOIN 09-27 09:03 → INTOOBSV 09-27 09:03 → UNDODISIN 09-27 14:22
PROVIDERS: ADMIT Internal Medicine; ATTEND Internal Medicine
PROC: XW033E5 Introduction of Remdesivir Anti-infective into Peripheral Vein, Percutaneous Approach, New Technology Group 5 (ICD-10-PCS; principal; 2021-09-25)
DX: U07.1 COVID-19 (principal); J12.82 Pneumonia due to coronavirus disease 2019; J96.21 Acute and chronic respiratory failure with hypoxia; J43.9 Emphysema, unspecified; Z82.49 Family history of ischemic heart disease and other diseases of the circulatory system; Z86.73 Personal history of transient ischemic attack (TIA), and cerebral infarction without residual deficits; Z87.891 Personal history of nicotine dependence; Z99.81 Dependence on supplemental oxygen; Z88.8 Allergy status to other drugs, medicaments and biological substances
CPT/HCPCS: 36415; 71045; 80053; 82728; 83605; 83735; 83880; 84484; 85025; 86141; 87040; 93005; 94640; 94644; 96374; G0378; J1100; J1956; J7060

== ENCOUNTER 2022-01-05 11:03 | Emergency (ER) | payer OTHER ==
[~2022-01-05] VITALS: Ht 152.4 cm; Wt 51.0 kg
[~2022-01-05 11:03] MED LIST changes: +AZIT500T66 PO; +DEXA6TAB PO; +HYDR-3682 PO
[2022-01-05 11:22] VITALS: BP 138/53
[2022-01-05 11:51] LABS: Basophils # (auto) 0.1 10 ^3/uL (0-0.2); Basophils % (auto) 1.4 % (0.0-2.0); Eosinophils # (auto) 0.3 10 ^3/uL (0-0.8); Eosinophils % (auto) 3.8 % (0.0-7.0); Hematocrit 36.9 % (36.0-46.0); Hemoglobin 12.1 g/dL (12.2-16.2); Lymphocytes # (auto) 1.6 10 ^3/uL (0.4-5.4); Lymphocytes % (auto) 22.6 % (10.0-50.0); Mean Corpuscular Hemoglobin 29.9 pg (28.0-32.0); Mean Corpuscular Hgb Conc. 32.8 g/dL (32.0-36.0); Mean Corpuscular Volume 91.1 fL (80.0-100.0); Monocytes # (auto) 0.7 10 ^3/uL (0-1.3); Monocytes % (auto) 9.4 % (0.0-12.0); Neutrophils # (auto) 4.5 10 ^3/uL (1.6-8.6); Neutrophils % (auto) 62.8 % (37.0-80.0); Red Blood Cells 4.05 10^6/uL (4.0-5.20); Red Cell Distribution Width 15.1 % (11.8-14.3); White Blood Cell 7.2 10^3/uL (4.4-10.8)
[2022-01-05 12:08] LABS: Albumin 3.5 g/dL (3.4-5.0); Calcium 9.4 mg/dL (8.5-10.1); Potassium 4.1 mmol/L (3.5-5.1)
[2022-01-05 12:13] LABS: BUN/Creatinine Ratio 16.8; Bilirubin, Total 0.3 mg/dL (0.2-1.0); Total Protein 7.4 g/dL (6.4-8.2)
[2022-01-05] MEDS ORDERED: levoFLOXacin 750MG 150 ML IV ONE (12:30)
[2022-01-05] MEDS ORDERED: IPRATROPIUM BROM 0.5 MG/2.5ML INH SOL NEB ONE ×3 (12:30→23:00)
[2022-01-05] MEDS ORDERED: ALBUTEROL SULF 2.5 MG/0.5ML(0.5%) NEB SOLN NEB ONE ×3 (12:30→23:00)
[2022-01-05] MEDS ORDERED: methylPREDNISolone SOD SUCC 125 MG/2 ML VL IV ONE (12:30)
[2022-01-05] MEDS ORDERED: METH4PAK PO (14:36)
[2022-01-05] MEDS ORDERED: LEVO500T31 PO (14:36)
[2022-01-05] MEDS ORDERED: ALBUTEROL SULF 2.5 MG/0.5ML(0.5%) NEB SOLN ONE (23:03)
[2022-01-05] MEDS ORDERED: IPRATROPIUM BROM 0.5 MG/2.5ML INH SOL ONE (23:04)
== END 2022-01-05 23:46 | disposition home or self-care (01) ==
LOC: ER 11:03
DX: J18.9 Pneumonia, unspecified organism (principal); J44.1 Chronic obstructive pulmonary disease with (acute) exacerbation; J44.9 Chronic obstructive pulmonary disease, unspecified; Z90.49 Acquired absence of other specified parts of digestive tract; Z90.89 Acquired absence of other organs; Z87.891 Personal history of nicotine dependence; Z79.899 Other long term (current) drug therapy; Z88.1 Allergy status to other antibiotic agents; Z88.8 Allergy status to other drugs, medicaments and biological substances
CPT/HCPCS: 36415; 71045; 80053; 83605; 83880; 84484; 85025; 87040; 93005; 94640; 94644; 96365; 96366; 96375; 99285; J1956; J2930; J7644